=== PATIENT | male | born 1985 | race African-American/Black ===

== ENCOUNTER 2020-12-05 16:06 | Emergency (ER) | payer MEDICAID ==
[~2020-12-05] VITALS: Ht 185.4 cm; Wt 110.7 kg
--- NOTE | 2020-12-05 16:21 | NUR ---
TO ER BED 2 AWAITING MD LEBLANC
--- NOTE | 2020-12-05 16:30 | NUR ---
patient came in to the er c/o high blood pressure from chiropractor's office. On room air, breathing evenly and unlabored. Connected to the monitor and pulse ox. kept comfortable, will continue to monitor accordingly.
[2020-12-05 17:12] VITALS: BP 151/93
--- NOTE | 2020-12-05 17:12 | NUR ---
Patient discharged to home in stable condition. Written and verbal after care instructions given. Patient verbalizes understanding of instruction.
== END 2020-12-05 17:12 | disposition home or self-care (01) ==
LOC: ER 16:09
DX: R03.0 Elevated blood-pressure reading, without diagnosis of hypertension (principal); F17.200 Nicotine dependence, unspecified, uncomplicated; Z60.2 Problems related to living alone